=== PATIENT | male | born 2000 | race Caucasian/White ===

== ENCOUNTER 2023-03-30 09:39 | Emergency (ER) | payer OTHER ==
[2023-03-30 09:51] VITALS: BP 134/68; O2SAT 98
--- NOTE | 2023-03-30 10:00 | ED Physician Documentation ---
PD HPI LOWER EXT INJURY - Stated complaint Stated Complaint: RT HEEL PX/SWELLING - Chief complaint Chief Complaint: Trauma Ext - History obtained from History obtained from: Patient - History of Present Illness PD HPI LOW EXT INJURY LOCATION: Left, Foot Type of injury: Blunt / blow Where injury occurred: Other (he was at friends house with others seeing the [place]. He does not remember exactly (due to alcohol use) but believes he kicked a table or stepped hard on object. Noted pain with getting up to go to bathroom later when back home and still hurting a lot with weight bearing this morning.) Timing - onset: Today, Last night Timing - details: Gradual onset, Still present Associated symptoms: Swelling. No: Weakness, Numbness Similar symptoms before: Has not had sx before Recently seen: Not recently seen Review of Systems Skin: denies: Lesions, Abrasion (s), Laceration (s) Neurologic: denies: Focal weakness, Numbness PD PAST MEDICAL HISTORY - Past Medical History Past Medical History: No - Past Surgical History Past Surgical History: No - Present Medications Home Medications: Ambulatory Orders Medication Instructions Recorded Confirmed No Known Home Medications 03/30/23 03/30/23 - Allergies Allergies/Adverse Reactions: Allergies Allergy/AdvReac Type Severity Reaction Status Date / Time Penicillins Allergy Hives Verified 03/30/23 09:51 - Social History Does the pt smoke?: No Smoking Status: Never smoker Does the pt drink ETOH?: Yes Does the pt have substance abuse?: No PD ED PE NORMAL - Vitals Vital signs reviewed: Yes - General General: Alert and oriented X 3, Well developed/nourished - Derm Derm: Normal color, Warm and dry - Extremities Extremities: Other (plantar right foot at heel with soft tissue swelling and marked tenderness. No skin lesions. Not red nor warm. Ankle itself is not tender. ) - Neuro Neuro: No motor deficit, No sensory deficit Results - Vitals Vitals: Vital Signs - 24 hr 03/30/23 09:47 Temperature 37.2 C Heart Rate 62 Respiratory 16 Rate Blood Pressure 134/68 H O2 Saturation 98 - Rads (name of study) ankle xray Relevant Findings:: Prelim report reviewed (no acute fracture.), EMP independent interpretation of test (no noted fracture. On lateral, Bohlers angle is normal. ) PD Medical Decision Making - ED course Complexity details: reviewed results (no fractures), considered differential (has pain with soft tissue swelling plantar area at the heel. No pain nor tender in arch. No pain with passive stretch, so not seeming fasciitis. Presume soft tissue swelling locally. No skin lesions nor signs of infection/puncture. ), d/w patient Departure - Departure Disposition: 01 Home, Self Care Clinical Impression: Contusion of plantar aspect of right foot Condition: Stable Record reviewed to determine appropriate education?: Yes Instructions: ED Contusion Foot Follow-Up: MICHAEL Hamilton [Provider Group] Comments: Your x-ray appears normal without any obvious fractures. Presuming a bruising on the bottom of the foot. Due to the sensitive and tight aspect of the tissue there, these can be fairly hindering in activity because of the discomfort. Quoc wrap elevate ice and rest the foot often today and tomorrow. Use of crutches for partial to no weightbearing to help with discomfort. I would suggest some ibuprofen 600 mg 3 times daily for the next several days or so to help with inflammation and discomfort. Add Tylenol every 4-6 hours if needed. Restricted activity for the next several days until improved. [facility] not back to normal by 3 to 5 days. Forms: PCP List, Activity restrictions Discharge Date/Time: 03/30/23 10:40
[2023-03-30] MEDS: IBUPROFEN 600 MG TABLET PO STA (10:18)
--- NOTE | 2023-03-30 10:18 | XRAY Report ---
PROCEDURE: Foot 3+V RT INDICATIONS: Trauma TECHNIQUE: 3 views of the foot were acquired. COMPARISON: None. FINDINGS: Bones: No fractures or dislocations. No suspicious bony lesions. Soft tissues: No suspicious soft tissue calcifications or masses. IMPRESSION: No acute fracture. No osseous lesion. If symptoms and/or clinical suspicion for patholog y continue, further assessment with repeat plain films, or advanced imaging (e.g., CT, MRI, or bone s can) is recommended for further assessment. Reviewed by: Davide Gonzalez MD on 03/30/2023 10:16 AM [facility] Approved by: Davide Gonzalez MD on 03/30/2023 10:16 AM [facility] Station ID: [id number]
== END 2023-03-30 10:40 | disposition home or self-care (01) ==
LOC: ED 09:39
DX: S90.31XA Contusion of right foot, initial encounter (principal); X58.XXXA Exposure to other specified factors, initial encounter; Y92.009 Unspecified place in unspecified non-institutional (private) residence as the place of occurrence of the external cause
CPT/HCPCS: 73630; 99283; A9270